=== PATIENT | female | born 1970 | race Caucasian/White ===

== ENCOUNTER 2019-03-18 22:02 | Inpatient (IN) | payer BC ==
--- NOTE | 2019-03-18 22:15 | ED ---
Psych HPI <Donald Melton - Last Filed: 03/19/19 10:30> - General Source: RN notes reviewed, old records reviewed - History of Present Illness MD Complaint: altered mental status, other (not responging by choice) -: unknown Associated Psychiatric Symptoms: none History of same: No Improves With: none Worsens With: none <Donald Phelan - Last Filed: 03/19/19 21:46> - General Stated Complaint: Mental Health Time Seen by Provider: 03/18/19 22:11 - History of Present Illness Initial Comments: This is a 48-year-old female ER for evaluation patient Edwardo for evaluation regards to unknown reason. Patient's brought in by EMS is not participating history taking. Patient was found crying in a parking lot by the ER again by PD, patient refusing again with history taking (Donald Phelan) - Related Data Home Medications Medication Instructions Recorded Confirmed No Known Home Medications 03/19/19 03/19/19 Allergies Allergy/AdvReac Type Severity Reaction Status Date / Time paliperidone [From Invega] AdvReac "MAKES HER Verified 03/19/19 11:10 GO LIBBY" Review of Systems ROS Other: All systems not noted in ROS Statement are negative. <Donald Melton - Last Filed: 03/19/19 10:30> ROS Other: All systems not noted in ROS Statement are negative. <Donald Phelan - Last Filed: 03/19/19 21:46> ROS Statement: Those systems with pertinent positive or pertinent negative responses have been documented in the HPI. General Exam General appearance: alert, in no apparent distress Head exam: Present: atraumatic, normocephalic, normal inspection Eye exam: Present: normal appearance, PERRL, EOMI. Absent: scleral icterus, conjunctival injection, periorbital swelling ENT exam: Present: normal exam, mucous membranes moist Neck exam: Present: normal inspection. Absent: tenderness, meningismus, lymphadenopathy Respiratory exam: Present: normal lung sounds bilaterally. Absent: respiratory distress, wheezes, rales, rhonchi, stridor Cardiovascular Exam: Present: regular rate, normal rhythm, normal heart sounds. Absent: systolic murmur, diastolic murmur, rubs, gallop, clicks GI/Abdominal exam: Present: soft, normal bowel sounds. Absent: distended, tenderness, guarding, rebound, rigid Extremities exam: Present: normal inspection, full ROM, normal capillary refill. Absent: tenderness, pedal edema, joint swelling, calf tenderness Back exam: Present: normal inspection Neurological exam: Present: alert, oriented X3, CN II-XII intact Psychiatric exam: Present: normal affect, normal mood Skin exam: Present: warm, dry, intact, normal color. Absent: rash <Donald Phelan - Last Filed: 03/19/19 21:46> Course <Donald Phelan - Last Filed: 03/19/19 21:46> Vital Signs 03/18/19 03/19/19 03/19/19 22:15 00:05 03:53 Temperature 98 F Pulse Rate 98 80 76 Respiratory 18 18 18 Rate Blood Pressure 133/87 133/75 148/80 O2 Sat by Pulse 98 98 98 Oximetry 03/19/19 03/19/19 06:19 08:14 Temperature 98.6 F Pulse Rate 80 90 Respiratory 18 16 Rate Blood Pressure 127/74 147/89 O2 Sat by Pulse 98 97 Oximetry - Reevaluation(s) Reevaluation #1: 03/19/19 02:34 Medical record is reviewed (Donald Phelan) Medical Decision Making - Lab Data Result diagrams: 03/19/19 00:02 03/19/19 00:02 <Donald Melton - Last Filed: 03/19/19 10:30> - Lab Data Result diagrams: 03/19/19 00:02 03/19/19 00:02 - Radiology Data Radiology results: report reviewed (CT brain is negative for acute disease), image reviewed <Donald Phelan - Last Filed: 03/19/19 21:46> - Medical Decision Making 46 female to the ER for evaluation significant psychiatry, at this point no organic cause for the patient's symptoms patient will be admitted for psychiatric evaluation and treatment (Donald Phelan) - Lab Data Lab Results 03/19/19 03/19/19 Range/Units 00:02 00:02 WBC 8.3 (3.8-10.6) k/uL RBC 4.73 (3.80-5.40) m/uL Hgb 14.7 (11.4-16.0) gm/dL Hct 43.3 (34.0-46.0) % MCV 91.4 (80.0-100.0) fL MCH 31.1 (25.0-35.0) pg MCHC 34.1 (31.0-37.0) g/dL RDW 11.9 (11.5-15.5) % Plt Count 394 (150-450) k/uL Neutrophils % 67 % Lymphocytes % 24 % Monocytes % 6 % Eosinophils % 1 % Basophils % 1 % Neutrophils # 5.6 (1.3-7.7) k/uL Lymphocytes # 2.0 (1.0-4.8) k/uL Monocytes # 0.5 (0-1.0) k/uL Eosinophils # 0.1 (0-0.7) k/uL Basophils # 0.1 (0-0.2) k/uL Sodium 141 (137-145) mmol/L Potassium 4.2 (3.5-5.1) mmol/L Chloride 108 H (98-107) mmol/L Carbon Dioxide 24 (22-30) mmol/L Anion Gap 9 mmol/L BUN 11 (7-17) mg/dL Creatinine 0.58 (0.52-1.04) mg/dL Est GFR (CKD-EPI)AfAm >90 (>60 ml/min/1.73 sqM) Est GFR (CKD-EPI)NonAf >90 (>60 ml/min/1.73 sqM) Glucose 98 (74-99) mg/dL Calcium 9.6 (8.4-10.2) mg/dL Salicylates <1.0 mg/dL Acetaminophen <10.0 ug/mL Serum Alcohol <10 mg/dL Disposition Time of Disposition: 10:30 <Donald Melton - Last Filed: 03/19/19 10:30> Is patient prescribed a controlled substance at d/c from ED?: No <Donald Phelan - Last Filed: 03/19/19 21:46> Clinical Impression: Psychosis, Acute psychosis Disposition: TRANSFER TO PSYCH HOSP/UNIT Condition: Fair
[2019-03-19 00:12] LABS: Basophils # (A) 0.1 k/uL (0-0.2); Basophils % (A) 1 %; Eosinophils # (A) 0.1 k/uL (0-0.7); Eosinophils % (A) 1 %; HCT 43.3 % (34.0-46.0); HGB 14.7 gm/dL (11.4-16.0); Lymphocytes % (A) 24 %; MCH 31.1 pg (25.0-35.0); MCHC 34.1 g/dL (31.0-37.0); MCV 91.4 fL (80.0-100.0); Mean Platelet Volume 7.4; Monocytes # (A) 0.5 k/uL (0-1.0); Monocytes % (A) 6 %; Neutrophils # (A) 5.6 k/uL (1.3-7.7); Neutrophils % (A) 67 %; Platelet Count 394 k/uL (150-450); RBC 4.73 m/uL (3.80-5.40); RDW 11.9 % (11.5-15.5); WBC 8.3 k/uL (3.8-10.6)
[2019-03-19 00:21] LABS: Acetaminophen <10.0 ug/mL; African American GFR (CKD) >90 (>60 ml/min/1.73 sqM); Alcohol <10 mg/dL; Anion Gap 9 mmol/L; Blood Urea Nitrogen 11 mg/dL (7-17); Calcium 9.6 mg/dL (8.4-10.2); Carbon Dioxide 24 mmol/L (22-30); Chloride 108 mmol/L (98-107); Glucose 98 mg/dL (74-99); Non-African American GFR(CKD) >90 (>60 ml/min/1.73 sqM); Potassium 4.2 mmol/L (3.5-5.1); Salicylate <1.0 mg/dL; Sodium 141 mmol/L (137-145)
[2019-03-19] MEDS ORDERED: SODIUM CHLORIDE 0.9% 1,000 ML IV STA (07:23)
--- NOTE | 2019-03-19 07:57 | CT ---
EXAMINATION TYPE: CT brain wo con DATE OF EXAM: 03/19/2019 COMPARISON: NONE HISTORY: Altered mental status CT DLP: 1099.4 mGycm Automated exposure control for dose reduction was used. FINDINGS: Central structures are midline. There is no evidence of hydrocephalus. No acute focal lesion, mass ef fect or midline shift is seen. I do not see evidence of intracranial blood. There are several subcuta neous scalp nodules present. These likely represent sebaceous cysts. There is a 12 mm retention cyst or polyp in the posterior aspect of the left maxillary sinus. The rem ainder the visualized sinuses and mastoids are clear. The bony calvarium is intact. IMPRESSION: 1. NO ACUTE INTRACRANIAL ABNORMALITY. 2. PROBABLE, MULTIPLE SEBACEOUS CYSTS. 3. 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
[2019-03-19] MEDS ORDERED: LORazepam 1 MG TAB PO PRN (12:04)
[2019-03-19] MEDS ORDERED: MAGNESIUM HYDROXIDE 2,400 MG/10 ML CUP PO PRN (12:04)
[2019-03-19] MEDS ORDERED: ACETAMINOPHEN TAB 325 MG TAB PO PRN (12:04)
[2019-03-19] MEDS ORDERED: ZIPRASIDONE 20 MG VIAL IM PRN (12:04)
[2019-03-19] MEDS ORDERED: MAG HYDROX/AL HYDROX/SIMETH 30 ML CUP PO PRN (12:04)
--- NOTE | 2019-03-19 19:57 | P.HP ---
Psychiatric H&P - . H&P Date: 03/19/19 History & Physical: Allergies Allergy/AdvReac Type Severity Reaction Status Date / Time paliperidone [From Invega] AdvReac "MAKES HER Verified 03/19/19 11:10 GO BESERK" Vital Signs Temp 98.6 F 03/19/19 08:14 Pulse 86 03/19/19 15:07 Resp 18 03/19/19 15:07 BP 144/68 03/19/19 15:07 Pulse Ox 97 03/19/19 08:14 Intake & Output 03/19/19 03/19/19 03/20/19 06:59 18:59 06:59 Weight 81.647 kg 111.5 kg Laboratory Last Values WBC 8.3 k/uL (3.8-10.6) 03/19/19 00:02 RBC 4.73 m/uL (3.80-5.40) 03/19/19 00:02 Hgb 14.7 gm/dL (11.4-16.0) 03/19/19 00:02 Hct 43.3 % (34.0-46.0) 03/19/19 00:02 MCV 91.4 fL (80.0-100.0) 03/19/19 00:02 MCH 31.1 pg (25.0-35.0) 03/19/19 00:02 MCHC 34.1 g/dL (31.0-37.0) 03/19/19 00:02 RDW 11.9 % (11.5-15.5) 03/19/19 00:02 Plt Count 394 k/uL (150-450) 03/19/19 00:02 Neutrophils % 67 % 03/19/19 00:02 Lymphocytes % 24 % 03/19/19 00:02 Monocytes % 6 % 03/19/19 00:02 Eosinophils % 1 % 03/19/19 00:02 Basophils % 1 % 03/19/19 00:02 Neutrophils # 5.6 k/uL (1.3-7.7) 03/19/19 00:02 Lymphocytes # 2.0 k/uL (1.0-4.8) 03/19/19 00:02 Monocytes # 0.5 k/uL (0-1.0) 03/19/19 00:02 Eosinophils # 0.1 k/uL (0-0.7) 03/19/19 00:02 Basophils # 0.1 k/uL (0-0.2) 03/19/19 00:02 Sodium 141 mmol/L (137-145) 03/19/19 00:02 Potassium 4.2 mmol/L (3.5-5.1) 03/19/19 00:02 Chloride 108 mmol/L (98-107) H 03/19/19 00:02 Carbon Dioxide 24 mmol/L (22-30) 03/19/19 00:02 Anion Gap 9 mmol/L 03/19/19 00:02 BUN 11 mg/dL (7-17) 03/19/19 00:02 Creatinine 0.58 mg/dL (0.52-1.04) 03/19/19 00:02 Est GFR (CKD-EPI)AfAm >90 (>60 ml/min/1.73 sqM) 03/19/19 00:02 Est GFR (CKD-EPI)NonAf >90 (>60 ml/min/1.73 sqM) 03/19/19 00:02 Glucose 98 mg/dL (74-99) 03/19/19 00:02 Calcium 9.6 mg/dL (8.4-10.2) 03/19/19 00:02 Salicylates <1.0 mg/dL 03/19/19 00:02 Acetaminophen <10.0 ug/mL 03/19/19 00:02 Serum Alcohol <10 mg/dL 03/19/19 00:02 03/19/19 19:46 IDENTIFYING DATA: 48-year-old single female patient HPI: Patient presents to the inpatient psychiatric unit [facility] on an involuntary basis for psychiatric admission. Petition was done by piece officers stating" subject unable to answer basic questions. Sad and [employer] parking lot for hours with blank stare. Unable to state how she got to [place] from [place]. Subject not making sense, acting delusional." Patient reports that at a spiritual encounter. She states that it's pretty personable and she doesn't want to go into detail about it. She does relate that how she ended up here her goals she says is to learn about how to cooperate with medical staff. Then she does state her goal was to come to [place]. She states later in the interview that she was on her way to [place]. She states that she does of a history of hearing God's voice, she states the voice didn't tell her to come to [place] but maybe when she was driving it said to go to [place].She reports she has not had any contact with her family but says they probably know she is in the hospital, she does really that this is happening before. When I ask her why she was brought to the hospital she relays that the police were couple with her staying in her car overnight. She says that was part of the plan to stay in her car says she was waiting for someone to come and find her.(anyone). She reports she had a similar experience a couple of days ago where she was found in [place], ended up in the emergency room but refused a psych eval. When asked about her being nonverbal for a significant amount of time in the emergency room she does state that she remembers that that she is having a hard time concentrating. When she was in [place] she says she went back to [place] and then came back to [place]. She says in [place] she had parked her car on the wrong side of the street. PAST PSYCHIATRIC HISTORY: Patient does have prior inpatient psychiatric admissions. She says they're not really psychotic breaks but she describes that as God disciplining her for her stubbornness. She doesn't a history of psychotropic medications but doesn't like the way they make her feel and she relays that they can alter the structure of her brain. She did take Abilify in the past initially says she didn't like it and she then states she had a dream that it was poison but does seem to relay she had some benefit with it. She does admit to a history of one time she was prepared to act on a thought of suicide by drinking toilet bowl stable cleaner. She has had one episode of depression in the past not treated. PMH: Denies ALLERGIES: Paliperidone MEDICATIONS: Tylenol when necessary, Maalox when necessary, Ativan when necessary, milk of magnesia when necessary, Geodon when necessary CHEMICAL DEPENDENCY HISTORY: Says occasional wine, it's never been a problem. FAMILY PSYCHIATRIC HISTORY: Relays that her mom had mental breakdowns and depression. FAMILY CHEMICAL DEPENDENCY HISTORY: None known at this time. SOCIAL HISTORY: Lives with her mom and sister in [place]. 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 She says she's been off for greater than a year. She says that God said that she needed more training. No history of being , does not have any children. MENTAL STATUS EXAM: She is alert and cooperative with the interview. She does relate that she doesn't want to go into details about her spiritual encounter. She describes her mood as "a little bit anxious." She is not present with any rapid or pressured speech. She does admit to hearing voices and describes that the voices God. She says she can hear him periodically in the last time was earlier while I was interviewing her in this office. She relays that the voice says a lot of things to her about her life and relays that the voice wants her to submit to his authority. She denies any current or recent thoughts of harm to self or others. Cognitively she appears to be grossly intact. Her insight has some limitations, judgment shows evidence of recent impairment. STRENGTHS/WEAKNESSES: Strengthsappears to have some support system; weaknessescoping skills, no active treatment INTELLECTUAL FUNCTIONING: average IMPRESSIONS: unspecified psychotic disorder PLAN: patient is admitted to the inpatient psychiatric unit [facility] on involuntary basis. She was placed on SP 15 minute precautions. She will participate in group and activity therapies. She will have baseline laboratory workup and medical consultation will be ordered. I recommended an antipsychotic medication for her which she at this time refuses. She relates during assessment that she doesn't want any psychotropic medication. She is asked to continue to consider. She does report being agreeable to one of the staff contacting her family to let them know that she is safe. We'll look into support systems. Estimated length of stay is 5-7 days. Prognosis is guarded.
--- NOTE | 2019-03-20 11:29 | P.PN ---
Progress Note - Text Progress Note Date: 03/20/19 I attempted to see this patient for medical history and physical. Patient states "I don't want to speak to anyone at this time." She is refusing history and physical exam. This was discussed with the staff at mental health unit. Please call [facility] if patient is willing to be seen at a later time.
--- NOTE | 2019-03-20 14:28 | P.PN ---
Progress Note - Text Progress Note Date: 03/20/19 Interval history: Patient is seen in cross coverage again today with female nursing staff present. Initially I called into the patient's room regarding meeting with her today and she did not response I went to get female nursing staff who accompanying me to her room. Initially the patient is nonverbal but then she does begin to speak. She relays that she just had a spiritual encounter and was hearing God's voice talking about her life. She relays that she is currently on an "christiano fast" for 3 days. Per staff she did not eat for breakfast or lunch. We discussed her needing healthy nutrition. She still chooses to not take psychotropic medication. Mental status exam: She is initially nonverbal with being alert. She does not show any agitation. Her affect is restricted. She describes her mood as "somber." She states she just had a spiritual encounter and was hearing God's voice talking about her life. She does not verbalize any thoughts of harm to self or others. She is not displaying any agitation. Plan: Patient continues today to refuse psychotropic medication. We'll continue to monitor her status, she is encouraged regarding needing healthy nutrition. She is asked to continue to consider starting medication.
[2019-03-21 11:16] LABS: Hemoglobin A1C 5.1 % (4.0-6.0)
--- NOTE | 2019-03-21 13:26 | P.PN ---
Subjective Progress Note Date: 03/21/19 Chief complaint: "I am hearing God's voice " Subjective: The patient has been seen today as follow-up, chart reviewed, case discussed with the treatment team. The patient remain paranoid and delusional. She appears very preoccupied. She remained withdrawn and isolative and refuses to talk or answer questions. The patient admitted to auditory hallucinations described as hearing "God's Bryon". The patient denies any suicidal or homicidal ideations but refused to elaborate anymore on the hallucinations. The patient has been refusing treatment and reports that she has "adventist convictions" against psychotropic medications. Objective - Vital Signs Vital signs: Vital Signs Temp 98.6 F 03/19/19 08:14 Pulse 86 03/19/19 15:07 Resp 18 03/19/19 15:07 BP 144/68 03/19/19 15:07 Pulse Ox 97 03/19/19 08:14 - Exam Objective: Vitals has been reviewed. Mental status examination; Appearance: The patient appears stated age, dressed in hospital gown and shows poor grooming and strong body odor. Gait/posture: Slow gait. Attitude and behavior: Poor eye contact and not able to engage during the session. Motor activity: Psychomotor retardation Speech: Low tone and volume and fragmented speech Mood: Anxious, depressed. Affect: Constricted Thought form: Fragmented and limited to short answers mostly mute Thought content: Paranoid and religiously preoccupied. She denies suicidal or homicidal thoughts, denies intentions or plans. Perception: Reports hearing "God's voice" Orientation: Unable to assess Insight: Absent Judgment: Poor - Labs CBC & Chem 7: 03/19/19 00:02 03/19/19 00:02 Assessment and Plan Assessment: Psychosis NOS Plan: PLAN: Continue inpatient level of care due to need for further stabilization on medications Precautions: Continue 15 minutes check for safety. Consults internal medicine team for management of medical problems. Provide the patient individual, group therapy, substance use disorder counseling to give better insight and learn coping skills. Medications: Recommend Zyprexa 5 mg by mouth twice a day. The patient is refusing any treatment. The patient is on petition and clinical certificate. A meeting the court date. Discharge patient to OUTPATIENT services upon a stabilization
[2019-03-21] MEDS: OLANZapine ODT 5 MG TAB PO SCH (22:33)
[2019-03-22] MEDS: OLANZapine ODT 5 MG TAB PO SCH ×2 (09:42→21:27)
[2019-03-22 09:51] LABS: African American GFR (CKD) >90 (>60 ml/min/1.73 sqM); Anion Gap 10 mmol/L; Blood Urea Nitrogen 10 mg/dL (7-17); Calcium 9.1 mg/dL (8.4-10.2); Carbon Dioxide 20 mmol/L (22-30); Chloride 107 mmol/L (98-107); Glucose 81 mg/dL (74-99); Non-African American GFR(CKD) >90 (>60 ml/min/1.73 sqM); Sodium 137 mmol/L (137-145)
--- NOTE | 2019-03-22 11:36 | P.PN ---
Subjective Progress Note Date: 03/22/19 Patient was seen and the chart was reviewed. The case was discussed with the staff in the team meeting. The patient remained paranoid and delusional. She remained religiously focused and appears to be responding to and following cues. The patient is not able to carry on a conversation. The patient admits to hearing God talking to her. She continues to refuse any psychotropic medications. I she appears to be very preoccupied and responding to internal cues. The patient was not able to answer any questions regarding further mental status. Objective - Vital Signs Vital signs: Vital Signs Temp 98.6 F 03/19/19 08:14 Pulse 86 03/19/19 15:07 Resp 18 03/19/19 15:07 BP 144/68 03/19/19 15:07 Pulse Ox 97 03/19/19 08:14 - Exam Objective: Vitals has been reviewed. Mental status examination; Appearance: The patient appears stated age, dressed in hospital gown and shows poor grooming and strong body odor. Gait/posture: Slow gait. Attitude and behavior: Poor eye contact and not able to engage during the session. Motor activity: Psychomotor retardation Speech: Low tone and volume and fragmented speech Mood: Anxious, depressed. Affect: Constricted Thought form: Fragmented and limited to short answers mostly mute Thought content: Paranoid and religiously preoccupied. She denies suicidal or homicidal thoughts, denies intentions or plans. Perception: Reports hearing "God's voice" Orientation: Unable to assess Insight: Absent Judgment: Poor - Labs CBC & Chem 7: 03/19/19 00:02 03/22/19 09:08 Labs: Abnormal Lab Results - Last 24 Hours (Table) 03/22/19 Range/Units 09:08 Carbon Dioxide 20 L (22-30) mmol/L Assessment and Plan Assessment: Psychosis NOS Plan: PLAN: Continue inpatient level of care due to need for further stabilization on medications Precautions: Continue 15 minutes check for safety. Consults internal medicine team for management of medical problems. Provide the patient individual, group therapy, substance use disorder counseling to give better insight and learn coping skills. Medications: Recommend Zyprexa 5 mg by mouth twice a day. The patient is refusing any treatment. The patient is on petition and clinical certificate. Awaiting the court date. Discharge patient to OUTPATIENT services upon a stabilization
[2019-03-23] MEDS: OLANZapine ODT 5 MG TAB PO SCH ×2 (09:34→21:08)
--- NOTE | 2019-03-23 14:26 | P.PN ---
Subjective Progress Note Date: 03/23/19 The patient was seen in the chart was reviewed. The patient is case was discussed with the staff during the team meeting. The patient continues to be withdrawn and isolative but has been seen pacing on the unit. The patient came to my office multiple times. The patient continues to have fragmented speech. She had her referral meeting and she decided to defer today. The patient agreed to take medication but continues to refuse psychotropic medications. The patient remained religiously preoccupied and appears to be responding to internal cues. She admitted to hearing God's voice. The patient did not answer any other questions appropriately. Objective - Vital Signs Vital signs: Vital Signs Temp 98.6 F 03/19/19 08:14 Pulse 86 03/19/19 15:07 Resp 18 03/19/19 15:07 BP 144/68 03/19/19 15:07 Pulse Ox 97 03/19/19 08:14 - Exam Objective: Vitals has been reviewed. Mental status examination; Appearance: The patient appears stated age, dressed in hospital gown and shows poor grooming and strong body odor. Gait/posture: Slow gait. Attitude and behavior: Poor eye contact and not able to engage during the session. Motor activity: Psychomotor retardation Speech: Low tone and volume and fragmented speech Mood: Anxious, depressed. Affect: Constricted Thought form: Fragmented and limited to short answers mostly mute Thought content: Paranoid and religiously preoccupied. She denies suicidal or homicidal thoughts, denies intentions or plans. Perception: Reports hearing "God's voice" Orientation: Unable to assess Insight: Absent Judgment: Poor - Labs CBC & Chem 7: 03/19/19 00:02 03/22/19 09:08 Assessment and Plan Assessment: Psychosis NOS Plan: PLAN: Continue inpatient level of care due to need for further stabilization on medications Precautions: Continue 15 minutes check for safety. Consults internal medicine team for management of medical problems. Provide the patient individual, group therapy, substance use disorder counseling to give bet ter insight and learn coping skills. Medications: Recommend Zyprexa 5 mg by mouth twice a day. The patient is refusing any treatment. The patient is on petition and clinical certificate. Awaiting the court date. Discharge patient to OUTPATIENT services upon a stabilization
[2019-03-24] MEDS: OLANZapine ODT 5 MG TAB PO SCH ×2 (09:19→21:12)
--- NOTE | 2019-03-24 13:24 | P.PN ---
Subjective Progress Note Date: 03/24/19 The patient seen and the chart was reviewed. The patient was discussed in the team meeting. The patient continues to be paranoid and delusional. She was mute during the session and did not answer any questions. The patient followed me in the hallway for some time. The patient continues to refuse medications. She was not able to carry on a conversation. Objective - Vital Signs Vital signs: Vital Signs Temp 97.6 F 03/24/19 06:26 Pulse 73 03/24/19 06:26 Resp 12 03/24/19 06:26 BP 116/60 03/24/19 06:26 Pulse Ox 97 03/19/19 08:14 - Exam Objective: Vitals has been reviewed. Mental status examination; Appearance: The patient appears stated age, dressed in hospital gown and shows poor grooming and strong body odor. Gait/posture: Slow gait. Attitude and behavior: Poor eye contact and not able to engage during the session. Motor activity: Psychomotor retardation Speech: Low tone and volume and fragmented speech Mood: Anxious, depressed. Affect: Constricted Thought form: Fragmented and limited to short answers mostly mute Thought content: Paranoid and religiously preoccupied. Perception: Appears to be responding to internal cues Orientation: Unable to assess Insight: Absent Judgment: Poor - Labs CBC & Chem 7: 03/19/19 00:02 03/22/19 09:08 Assessment and Plan Assessment: Psychosis NOS Plan: PLAN: Continue inpatient level of care due to need for further stabilization on medications Precautions: Continue 15 minutes check for safety. Consults internal medicine team for management of medical problems. Provide the patient individual, group therapy, substance use disorder counseling to give better insight and learn coping skills. Medications: Recommend Zyprexa 5 mg by mouth twice a day. The patient is refusing any treatment. The patient is on petition and clinical certificate. Awaiting the court date. Discharge patient to OUTPATIENT services upon a stabilization
[2019-03-25] MEDS: OLANZapine ODT 5 MG TAB PO SCH ×3 (09:45→22:20)
--- NOTE | 2019-03-25 13:18 | P.PN ---
Subjective Progress Note Date: 03/25/19 The patient seen and the chart was reviewed. The patient was discussed in the team meeting. The patient was seen in her room while she was laying in bed. The patient continues to be paranoid and delusional. She remained religiously preoccupied and reports hearing "God's voice". She was mute during the session mostly and did not answer many questions. The patient continues to refuse medications. She was not able to carry on a conversation. Objective - Vital Signs Vital signs: Vital Signs Temp 97.6 F 03/24/19 06:26 Pulse 73 03/24/19 06:26 Resp 15 03/25/19 06:16 BP 116/60 03/24/19 06:26 Pulse Ox 97 03/19/19 08:14 - Exam Objective: Vitals has been reviewed. Mental status examination; Appearance: The patient appears stated age, dressed in hospital gown and shows poor grooming and strong body odor. Gait/posture: Slow gait. Attitude and behavior: Poor eye contact and not able to engage during the session. Motor activity: Psychomotor retardation Speech: Low tone and volume and fragmented speech Mood: Anxious, depressed. Affect: Constricted Thought form: Fragmented and limited to short answers mostly mute Thought content: Paranoid and religiously preoccupied. Perception: Appears to be responding to internal cues Orientation: Unable to assess Insight: Absent Judgment: Poor - Labs CBC & Chem 7: 03/19/19 00:02 03/22/19 09:08 Assessment and Plan Assessment: Psychosis NOS Plan: PLAN: Continue inpatient level of care due to need for further stabilization on medications Precautions: Continue 15 minutes check for safety. Consults internal medicine team for management of medical problems. Provide the patient individual, group therapy, substance use disorder counseling to give better insight and learn coping skills. Medications: Encourage compliance Recommend Zyprexa 5 mg by mouth twice a day. The patient is refusing any treatment. The patient is on petition and clinical certificate. Awaiting the court date. Discharge patient to OUTPATIENT services upon a stabilization
[2019-03-26] MEDS: OLANZapine ODT 5 MG TAB PO SCH ×2 (08:56→21:48)
--- NOTE | 2019-03-26 09:32 | P.PN ---
Progress Note - Text Interval history: The patient is found in her room she follows me to an interview room. She was admitted for acute symptoms of psychosis. She indicates that she is hearing an evil spirit. She states that the evil spirit is telling her not to talk. In reviewing some other progress notes it appears that she is sometimes mutant sessions. We reviewed her psychotropic medication. She states that she was on Zyprexa in the past and insists that her remain at a low dose. I informed her that the medication would likely be more effective if we were able to titrate the dose. She indicates that she has a deferral conference pending. I will need to verify with staff. She states she has not yet gone through a court hearing. She states that she wants to switch doctors. She states she needs to apologize to Dr. Yeager for lying to him. She indicates she needs the teacher dancing from the homeless alf to come to the mental health unit. Mental status exam the patient is an overweight female she is dressed in her own clothing she has a disheveled appearance she demonstrates some psychomotor slowing. Eye contact is staring in nature. She endorses auditory hallucinations directing activity. She is reporting no visual hallucinations. She may have some paranoid and persecutory thoughts as well. She is guarded in responding to questions related to delusions. She demonstrates no verbal or physical aggressiveness. She does demonstrate some psychomotor slowing. She demonstrates no repetitive involuntary movements. Insight and judgment are impaired. She reports no suicidal ideation intent or plan no homicidal ideation intent or plan. Plan: The patient is currently on Zyprexa 5 mg twice daily. For her symptoms the dose would likely need to be increased. She is refusing that at this time. We will need to verify if she is in fact waiting for deferral conference. Vital signs reviewed. She is encouraged to participate in the milieu. Efforts were made to provide reality orientation. He requires continued psychiatric hospitalization due to her acute psychosis and the dysfunction that it causes.
[2019-03-27] MEDS: OLANZapine ODT 5 MG TAB PO SCH ×2 (10:50→22:01)
--- NOTE | 2019-03-27 14:01 | P.PN ---
Progress Note - Text Interval history: The patient's found in the dining room she follows me to an interview room. She states that she has trouble expressing herself. She states that she has a speech impediment and neat speech pathology. After making those few statements she then stopped talking she leaned forward in her chair and was touching the floor with her hands. She then sat up held her arms outstretched for an extended period of time. Staff was needed to help assist her out of the office. She indicated to them she was feeling dizzy and they are now checking her blood pressure. The patient refused her antipsychotic medication this morning. Mental status exam: The patient is an obese female appearing her stated age. She is dressed in her own clothing hygiene grooming appear adequate. Eye contact is poor. She demonstrated bizarre behavior as noted above. He made only a few verbal statements. She appears to be acutely psychotic still. Insight and judgment are poor. She demonstrated no verbal or physical aggressiveness. She did not appear to be any acute physical distress. Prior to our conversation she was observed to be ambulating adequately although slowly. Plan: The patient will be offered her current psychotropic medication. She does have a court hearing scheduled for the if a full hearing as needed. She requires continued psychiatric hospitalization. We will monitor her further for safety including her vital signs.
[2019-03-28] MEDS: OLANZapine ODT 5 MG TAB PO SCH ×2 (09:50→21:18)
--- NOTE | 2019-03-28 13:36 | P.PN ---
Subjective Progress Note Date: 03/28/19 Principal diagnosis: Unspecified psychotic disorder, rule out schizophrenia, rule out schizoaffective disorder I reviewed the medical record, interviewed the patient and discuss her treatment and treatment plan during team meeting. She was reluctant to get out of bed for this interview. She was very difficult interview in that she had marked poverty of speech and content of speech. She was guarded and suspicious. She denied that she has a mental illness or needs treatment for any mental illness. She stopped taking her psychotropic medication "several months ago" because God spoke to her and told she needed to stop taking the medication to clear her mind. She was religiously preoccupied. She believes that God asked her to "preach the Gospel" and "convert the homeless." She alleged that she came to [place] to live in a women's skilled nursing to "spread the word." She described hearing the voice of God, Koffi Lao and the Holy Ghost. She believes that her speech is that of the Holy Ghost. She is refusing Zyprexa 5 mg by mouth twice a day. She would not talk about her past history. Objective - Vital Signs Vital signs: Vital Signs Temp 98.4 F 03/28/19 06:39 Pulse 61 03/28/19 06:39 Resp 14 03/28/19 06:39 BP 108/58 03/28/19 06:39 Pulse Ox 96 03/27/19 06:49 Intake & Output 03/27/19 03/28/19 03/28/19 18:59 06:59 18:59 Weight 108.7 kg - Exam She presented as a moderately obese 48-year-old woman who looked her stated age. She had thick unkept hair. She was restless throughout the interview. Her speech was not spontaneous. She had long pauses before answering questions. She demonstrated poverty of speech and poverty of content She would stare for periods where she appeared to be responding to internal stimuli. Her affect was blunted and unreactive. She denied suicidal or homicidal thoughts. She expressed fixed delusional beliefs regarding God and the devil. She talked about the "devil" placing thoughts into her mind. Her thinking was not organized or coherent. She described auditory hallucinations. - Labs CBC & Chem 7: 03/19/19 00:02 03/22/19 09:08 Assessment and Plan Assessment: She is a 48-year-old woman who has a history of a psychiatric illness most likely a schizophrenia or a schizoaffective disorder. Her thinking is not organized, she expresses overvalued synagogue beliefs, ideas reference, thought insertion and auditory hallucinations. She has no insight or understanding of her mental illness or need for treatment. Because she will not consent to treatment will proceed with the plan for a probate hearing for involuntary treatment. Plan: Continue hospitalization. Probate hearing scheduled for 03/30/2019. Continue Ativan and/or Geodon when necessary for agitation or aggression.
--- NOTE | 2019-03-28 18:17 | P.MDCNMH ---
History of Present Illness H&P Date: 03/28/19 Chief Complaint: Medical evaluation 48-year-old female It's very hard to interview this patient. She seems to be suspicious and paranoid. She speaks few words at a time followed by long pauses just rocking in the chair back and forth she makes good eye contact at times but she keeps gazing without blinking. She asked me to show up in Court to say that she has no medical problems. She is concerned about her speech at the same time. Computed tomography scan in the ED was negative. When the patient does talk she talk full sentences seems to be fluent but has poverty and her content of speech. And then followed by very long pauses Review of Systems ROS unobtainable: due to mental status Past Medical History Past Medical History: No Reported History History of Any Multi-Drug Resistant Organisms: None Reported Past Surgical History: No Surgical Hx Reported Past Psychological History: Unable to Obtain Smoking Status: Unknown if ever smoked Past Alcohol Use History: Unable to Obtain Medications and Allergies Home Medications Medication Instructions Recorded Confirmed Type No Known Home Medications 03/19/19 03/19/19 History Allergies Allergy/AdvReac Type Severity Reaction Status Date / Time paliperidone [From Invega] AdvReac "MAKES HER Verified 03/19/19 11:10 GO CRISTINAERK" Physical Exam Vitals: Vital Signs Temp Pulse Resp BP 03/28/19 06:39 98.4 F 61 14 108/58 Constitutional: No acute distress, patient doesn't really cooperate with exam. Doesn't follow commands when asked to take deep breaths or move her extremities and just seems to be sitting in the chair rocking back and forth. However eventually sometimes she follows certain commands after long pause Eyes: Anicteric sclerae, moist conjunctiva, Pupils equal round reactive to light ENMT: NC/AT Oropharynx clear, no erythema, exudates Neck: Supple, FROM, no masses, or JVD No carotid bruits No thyromegaly Lungs: Clear to auscultation Clear to percussion Normal respiratory effort, no accessory muscle use Cardiovascular: Heart regular in rate and rhythm, No murmurs, gallops, or rubs No peripheral edema Abdominal: Soft Nontender, no guarding, rebound or rigidity Abdomen moving with respiration Normoactive bowel sounds Skin: Normal temperature, tone, texture, turgor No induration No subcutaneous nodules No rash, lesions No ulcers Extremities: No digital cyanosis No clubbing Pedal pulses intact and symmetrical Radial pulses intact and symmetrical No calf tenderness Psychiatric: Alert and oriented to person, place Patient seems to be suspicious and paranoid poor judgement Neuro Muscles Strength 5/5 in all 4 extremities Sensation to light touch grossly present throughout Cranial nerves II-XII grossly intact No focal sensory deficits Lymphatics: no palpable cervical or supraclavicular , or inguinal lymph nodes Cranial Nerve Examination - Cranial Nerves Cranial Nerve II- Optic: Intact Cranial Nerve III- Oculomotor: Intact Cranial Nerve IV- Trochlear: Intact Cranial Nerve V- Trigeminal: Intact Cranial Nerve - Abducens: Intact Cranial Nerve VII- Facial: Intact Cranial Nerve VIII- Auditory: Intact Cranial Nerve IX- Glossopharyngeal: Intact Cranial Nerve X- Vagus: Intact Cranial Nerve XI- Accessory: Intact Cranial Nerve XII- Hypoglossal: Intact Results CBC & Chem 7: 03/19/19 00:02 03/22/19 09:08 Assessment and Plan Plan: Abnormal behavior possible schizophrenia Management and follow-up by psychiatry Low risk for DVT patient is ambulatory Labs were reviewed overall unremarkable Thank you for allowing us to participate in the care of this patient. We will follow peripherally. Do not hesitate to contact us with questions. Someone can be reached from the [facility] hospitalist group at all hours of the day at [phone].
[2019-03-29] MEDS: OLANZapine ODT 5 MG TAB PO SCH ×2 (09:49→21:41)
--- NOTE | 2019-03-29 15:46 | P.PN ---
Subjective Progress Note Date: 03/29/19 Principal diagnosis: Unspecified psychotic disorder, rule out schizophrenia, rule out schizoaffective disorder I reviewed the medical record, interviewed the patient and discuss her treatment and treatment plan during team meeting. She complained that she is a missed of a "boo" where she is struggling against her enemies that include the differential and her "extended family." She talked about "the enemy" putting thoughts into her mind that were "disturbing" and against "God's wishes." She remains opposed to taking a psychotropic medication because God told her that s he would not be allowed to enter the Kingdom and panicky if she were to take such medications. She appeared to be responding to internal stimuli during the interview because. I made the comment that I do not believe that God would not want her to receive medical treatment. She stared blankly at the floor and began to move her mouth as though she were speaking. Objective - Vital Signs Vital signs: Vital Signs Temp 98.4 F 03/28/19 06:39 Pulse 61 03/28/19 06:39 Resp 14 03/29/19 05:57 BP 108/58 03/28/19 06:39 Pulse Ox 96 03/27/19 06:49 Intake & Output 03/28/19 03/29/19 03/29/19 18:59 06:59 18:59 Weight 108.7 kg - Exam She presented as a moderately obese 48-year-old woman who looked her stated age. She had thick unkept hair. She was restless throughout the interview. Her speech was not spontaneous. She had long pauses before answering questions. Sh shereen demonstrated poverty of speech and poverty of content She would stare for periods where she appeared to be responding to internal stimuli. Her affect was blunted and unreactive. She denied suicidal or homicidal thoughts. She expressed fixed delusional beliefs regarding God and the devil. She talked about the "devil" placing thoughts into her mind. Her thinking was not organized or coherent. She described auditory hallucinations and appeared to be responding to internal stimuli during our interview. - Labs CBC & Chem 7: 03/19/19 00:02 03/22/19 09:08 Assessment and Plan Assessment: She is severely mentally ill and minimally improve from admission. She refused to consent to antipsychotic medications. Plan: Continue hospitalization. Probate hearing scheduled for 03/30/2019. Continue Ativan and/or Geodon when necessary for agitation or aggression, encourage participation in therapeutic groups and in 2 days as tolerated, evaluate clinical status response to treatment daily basis.
[2019-03-30] MEDS: OLANZapine ODT 5 MG TAB PO SCH ×2 (09:10→20:45)
--- NOTE | 2019-03-30 15:55 | P.PN ---
Subjective Progress Note Date: 03/30/19 Principal diagnosis: Unspecified psychotic disorder, rule out schizophrenia, rule out schizoaffective disorder I reviewed the medical record, interviewed the patient and discuss her treatment and treatment plan during team meeting. Her probate hearing was deferred 2 weeks today because a job which was "unhappy" with the alternative treatment plan. The patient returned from courts with a dramatic change in her behavior. She was talkative and engaging. She talked about "something's" overcoming her and "forcing" her to leave her home and drove to [place]. The same experience resentment her from talking initially during hospitalization. She talked about her experience with past psychiatric hospitalizations including involuntary hospitalizations. She has struggled with treatment and complained about answers effects of various antipsychotic medications. For example, she gained 100 pounds when she was taking Zyprexa. She talked extensively about her efforts to control weight gain including dieting and exercising. She experience emotional "numbing" with both Abilify and Invega. She experience less numbing with a "low dose" Latuda and consented to restart it but at a "low dose." She does not believe that antipsychotic medications admitted his significant effect on her well-being because she continues to believe that she has a "spiritual problem" as opposed to a mental illness. She was more open to the idea of returning home to [place] but again refused to give permission from ED to speak with her family or her treating psychiatrist. Objective - Vital Signs Vital signs: Vital Signs Temp 98.4 F 03/30/19 06:45 Pulse 67 03/30/19 06:45 Resp 18 03/30/19 06:45 BP 119/57 03/30/19 06:45 Pulse Ox 99 03/30/19 06:45 Intake & Output 03/29/19 03/30/19 03/30/19 18:59 06:59 18:59 Weight 108.7 kg - Exam She presented as a moderately obese 48-year-old woman who looked her stated age. She had thick unkept hair. She was not restless she had during the prior encounters. Her speech was spontaneous but slow. She did not stare for long periods as she had done during prior encounters. Her affect was depressed and she cried intermittently during interview. She denied suicidal or homicidal thoughts. She did not perseverate about her beliefs about God and the devil. Her thinking was organized and coherent. She did not appear to be responding to internal stimuli. - Labs CBC & Chem 7: 03/19/19 00:02 03/22/19 09:08 Assessment and Plan Assessment: She is severely mentally ill and moderately improve from admission. She has consented to treatment with an antipsychotic. Plan: Continue hospitalization. fat pressroom worker to coordinate a deferment or a stipulation with the probate Court. Begin Latuda 20 mg at bedtime. Continue Ativan and/or Geodon when necessary for agitation or aggression, encourage pa rticipation in therapeutic groups and in 2 days as tolerated, evaluate clinical status response to treatment daily basis.
[2019-03-30] MEDS: LURASIDONE 20 MG TAB PO SCH (20:45)
[2019-03-31] MEDS: OLANZapine ODT 5 MG TAB PO SCH (09:00)
--- NOTE | 2019-03-31 14:01 | P.PN ---
Subjective Progress Note Date: 03/31/19 Principal diagnosis: Unspecified psychotic disorder, rule out schizophrenia, rule out schizoaffective disorder I reviewed the medical record, interviewed the patient and discuss her treatment and treatment plan during team meeting. She took her first dose of Latuda last night. This morning she did not get up for breakfast or lunch. She's been asleep in her room. She is difficult to arouse except with deep pressure. When aroused she sluggishly complained to "go away." She would not get out of bed or come into the office for the interview. Objective - Vital Signs Vital signs: Vital Signs Temp 98.4 F 03/31/19 06:49 Pulse 73 03/31/19 06:49 Resp 18 03/31/19 06:49 BP 130/61 03/31/19 06:49 Pulse Ox 97 03/31/19 06:49 - Exam She was laying in bed and as mentioned above difficult to arouse Lexapro deep pressure. - Labs CBC & Chem 7: 03/19/19 00:02 03/22/19 09:08 Assessment and Plan Assessment: She is severely mentally ill and moderately improve from admission. She is sedated probably from the initial dose of Latuda. Plan: Continue hospitalization. transportation maintenance worker to coordinate a deferment or a stipulation with the probate Court. Continue Latuda 20 mg at bedtime. Discontinue old order for side effects 5 mg by mouth twice a day Continue Ativan and/or Geodon when necessary for agitation or aggression, encourage participation in therapeutic groups and in 2 days as tolerated, evaluate clinical status response to treatment daily basis.
[2019-03-31] MEDS: LURASIDONE 20 MG TAB PO SCH (19:52)
--- NOTE | 2019-04-01 12:09 | P.PN ---
Subjective Progress Note Date: 04/01/19 Principal diagnosis: Unspecified psychotic disorder, rule out schizophrenia, rule out schizoaffective disorder I reviewed the medical record, interviewed the patient and discuss her treatment and treatment plan during team meeting. She remained in bed yesterday until dinner. She told me that "the enemy" prevented her from getting out of bed, moving or speaking. She initially believed that the commands were from "Koffi Shilo" but later realize they were "the enemy". She believes that the antipsychotic medication allowed "the enemy" to end her mind and control her behavior. She would not engage in discussion of discharge plans or family support. She replied to questions with the statement "I do not want to talk about that." She again requested to "disorder" her probate hearing for involuntary hospitalization. I spoke with his secretary office clerk we will arrange for the court representative government relations to discuss her request. She denied side effects to the initial dose of Latuda. Objective - Vital Signs Vital signs: Vital Signs Temp 98.8 F 04/01/19 06:14 Pulse 65 04/01/19 06:14 Resp 14 04/01/19 06:14 BP 111/63 04/01/19 06:14 Pulse Ox 97 03/31/19 06:49 - Exam She was casually groomed pleasant and cooperative. She made eye contact and appeared to attend to the interview. She had a flat facial expression. She showed psychomotor retardation but no abnormal movements. Her speech was halting. There were long pauses between her statements or answers to questions. Her affect was flat and unreactive. She did not express suicidal homicidal ideation. She expressed feelings of hopelessness regarding her control of her behavior or resistance against commands of "the enemy". She expressed paranoid ideation, paranoid delusional beliefs, thought insertion, and thought control. Her thinking was coherent and logical consistent with a chronic delusional beliefs. She described hearing the voice of "Koffi Shilo" and "others" but did not appear to be responding to internal stimuli. - Labs CBC & Chem 7: 03/19/19 00:02 03/22/19 09:08 Assessment and Plan Assessment: She is severely mentally ill and moderately improve from admission. She remains paranoid, delusional and psychotic. Plan: Continue hospitalization. Continue Latuda 20 mg at bedtime and titrated according to clinical response and tolerance. Continue Ativan and/or Geodon when necessary for agitation or aggression, encourage participation in therapeutic groups and in 2 days as tolerated, evaluate clinical status response to treatment daily basis.
[2019-04-01] MEDS: LURASIDONE 20 MG TAB PO SCH (22:06)
--- NOTE | 2019-04-02 16:45 | P.PN ---
Progress Note - Text Progress Note Date: 04/02/19 Subjective: Patient was seen today as a cross coverage for . The patient was evaluated, chart reviewed, case discussed with the treatment team. Patient presented with bizarre psychotic behavior and speech. She wasn't able to give any informative history and reports "I have word finding problems". When he was asking about sleeping, she kept answered by "I am sleeping" without giving any further history or details about her symptoms. She presents with thought bloc luis a and was very slow in her reaction and her response. At certain points during interview she responded to questions by "I couldn't answer further question". The patient appears internally preoccupied and as she responding to internal stimuli. No report of suicidal or homicidal thoughts, but she presents guarded and to certain degree paranoid. Objective: Vitals has been reviewed. Mental status examination; Appearance: The patient appears stated age, adequately groomed and dressed, no specific features. Gait/posture: Normal gait, Normal arm swinging: No abnormal movements. Attitude and behavior: Not engaged, not cooperative, poor eye contact. Motor activity: Decreased psychomotor activity Speech: Slow rate, vert low volume. Mood: "not reported" Affect: Flat Thought form: Thought blocking. Thought content: Bizarre, disorganized, no report of suicidal or homicidal thoughts, no report of intentions or plans to harm self or others. Perception: Patient was not fully cooperative, but she seems responding to internal stimuli Attention: No impairment. Orientation: Patient was not fully cooperative and didn't answer questions Insight: Patient has limited insight about her psychiatric disorder. Judgment: Patient has limited judgment about her psychiatric treatment. Assessment: Unspecified psychosis. Plan: Continue inpatient level of care due to need for further stabilization on medications Precautions: Continue 15 minutes check for safety. Consider medical consultation if any acute medical issues arise. Provide the patient individual, group therapy, substance use disorder counseling to give better insight and learn coping skills. Medications: Continue Latuda for psychotic symptoms. Continue when necessary medications. Discharge patient to OUTPATIENT services upon a stabilization
[2019-04-02] MEDS: LURASIDONE 20 MG TAB PO SCH (21:54)
--- NOTE | 2019-04-03 13:10 | P.PN ---
Progress Note - Text Progress Note Date: 04/03/19 Subjective: Patient was seen today as a cross coverage for . The patient was evaluated, chart reviewed, case discussed with the treatment team. Patient Presented the same today with bizarre behavior, not answering questions, staring, and looks internally preoccupied. Patient was not able to give any history or report about her symptoms. She was mumbling some more anxious and sometimes repeating words "my head". No report from nursing that patient had suicidal or homicidal thoughts. Objective: Vitals has been reviewed. Mental status examination; Appearance: The patient appears stated age, adequately groomed and dressed, no specific features. Gait/posture: Normal gait, Normal arm swinging: No abnormal movements. Attitude and behavior: Not engaged, not cooperative, poor eye contact. Motor activity: Decreased psychomotor activity Speech: Slow rate, vert low volume. Mood: "not reported" Affect: Flat Thought form: Thought blocking. Thought content: Bizarre, disorganized, no report of suicidal or homicidal thoughts, no report of intentions or plans to harm self or others. Perception: Patient was not fully cooperative, but she seems responding to internal stimuli Attention: No impairment. Orientation: Patient was not fully cooperative and didn't answer questions Insight: Patient has limited insight about her psychiatric disorder. Judgment: Patient has limited judgment about her psychiatric treatment. Assessment: Unspecified psychosis. Plan: Continue inpatient level of care due to need for further stabilization on medications Precautions: Continue 15 minutes check for safety. Consider medical consultation if any acute medical issues arise. Provide the patient individual, group therapy, substance use disorder counseling to give better insight and learn coping skills. Medications: Continue Latuda for psychotic symptoms. Continue when necessary medications. Discharge patient to OUTPATIENT services upon a stabilization
[2019-04-03] MEDS: LURASIDONE 20 MG TAB PO SCH (21:37)
[2019-04-04] MEDS: ARIPiprazole 5 MG TAB PO SCH (09:09)
--- NOTE | 2019-04-04 13:52 | P.PN ---
Subjective Progress Note Date: 04/04/19 Principal diagnosis: Schizoaffective disorder I reviewed the medical record, interviewed the patient and discuss her treatment and treatment plan during team meeting. She refused to take her to her on Thursday and Thursday. She complained that it "made me feel funny." We discussed options and she agreed to a trial of Abilify "but added low-dose". She had taken Abilify in the past and experienced no adverse effects. She remains religiously preoccupied. She again talked about "God", "Koffi Shilo" and "the enemy" (devil or Satan). She acknowledges that "God" speaks for her on an almost continuous basis. She views this hospitalization as a "punishment" for having mistaken "the enemy" for "Koffi Shilo". Objective - Vital Signs Vital signs: Vital Signs Temp 98.8 F 04/04/19 06:25 Pulse 85 04/04/19 06:25 Resp 16 04/04/19 06:25 BP 128/72 04/04/19 06:25 Pulse Ox 97 03/31/19 06:49 Intake & Output 04/03/19 04/04/19 04/04/19 18:59 06:59 18:59 Weight 104.9 kg - Exam She was casually groomed pleasant and cooperative. She made eye contact and appeared to attend to the interview. She had a flat facial expression. She fidgeted throughout the interview. Her speech was halting. There were long pauses between her statements or answers to questions. Her affect was flat and unreactive. She did not express suicidal homicidal ideation. She expressed paranoid ideation, paranoid delusional beliefs, thought insertion, and thought control. Her thinking was coherent and logical consistent with a chronic delusional beliefs. She described hearing the voice of "Koffi Shilo" and "others" but did not appear to be responding to internal stimuli. - Labs CBC & Chem 7: 03/19/19 00:02 03/22/19 09:08 Assessment and Plan Assessment: She is severely mentally ill and moderately improve from admission. She remains paranoid, delusional and psychotic. Plan: Continue hospitalization. She is expressing interest in stipulating to the involuntary treatment order. Discontinue Latuda 20 mg at bedtime and began Abilify 2.5 mg daily and titrated according to clinical response and tolerance. Continue Ativan and/or Geodon when necessary for agitation or aggression, encourage participation in therapeutic groups and in 2 days as tolerated, evaluate clinical status response to treatment daily basis.
[2019-04-05] MEDS: ARIPiprazole 5 MG TAB PO SCH ×3 (10:21→14:09)
--- NOTE | 2019-04-05 14:43 | P.PN ---
Subjective Progress Note Date: 04/05/19 Principal diagnosis: Schizoaffective disorder unspecified type I reviewed the medical record, interviewed the patient and discuss her treatment and treatment plan during team meeting. She initially refused to take the morning dose of Abilify. She continues to perseverate on protestant themes and described a special relationship with God where God communicates directly to her and she struggles to distinguish God's voice from that of the devil, "the enemy". She does not believe that she has a mental illness. She was unable to provide a coherent explanation as to why she has had psychiatric hospitalizations including involuntary hospitalizations, forced to take psychotropic medication, prescribed psychotropic medications and with mental health professional since psychiatrist. We are awaiting a appeals representative from probate court to meet with her regarding her request to stipulate to the involuntary treatment order. Objective - Vital Signs Vital signs: Vital Signs Temp 98.2 F 04/05/19 06:10 Pulse 65 04/05/19 06:10 Resp 18 04/05/19 06:10 BP 138/77 04/05/19 06:10 Pulse Ox 99 04/05/19 06:10 Intake & Output 04/04/19 04/05/19 04/05/19 18:59 06:59 18:59 Weight 67.585 kg - Exam She was casually groomed pleasant and cooperative. She made eye contact and appeared to attend to the interview. She had a flat facial expression. She sat motionless throughout the interview. Her speech was halting and she demonstrated thought blocking. She frequently does not finish sentences. There were long pauses between her statements or answers to questions. Her affect was flat and unreactive. She did not express suicidal homicidal ideation. She expressed paranoid ideation, paranoid delusional beliefs, thought insertion, and thought control. Her thinking was coherent and logical consistent with a chronic delusional beliefs. She described hearing the voice of "Koffi Shilo" and "others" but did not appear to be responding to internal stimuli. - Labs CBC & Chem 7: 03/19/19 00:02 03/22/19 09:08 Assessment and Plan Assessment: She is severely mentally ill and moderately improve from admission. She remains paranoid, delusional and psychotic. Plan: Continue hospitalization. She is expressing interest in stipulating to the involuntary treatment order. Continue Abilify 2.5 mg daily and titrated according to clinical response and tolerance. Transition to [facility] after we obtain the probate order for involuntary treatment. Continue Ativan and/or Geodon when necessary for agitation or aggression, encourage participation in therapeutic groups as tolerated, evaluate clinical status response to treatment daily basis.
--- NOTE | 2019-04-06 16:03 | P.PN ---
Subjective Progress Note Date: 04/06/19 Principal diagnosis: Schizoaffective disorder unspecified type I reviewed the medical record, interviewed the patient and discuss her treatment and treatment plan during team meeting. She complains that she does not feel comfortable on the unit. "I'm not like the other people here. I don't have the same interest." Were able to discuss her discharge plans and she gave me the name and telephone number of this her psychiatrist in [place]. She gave me permission to speak with him. She is concerned that her car had been impounded and she would have to pay a "hefty fee" before she can regain possession. She denied side effects initial doses of Abilify. Objective - Vital Signs Vital signs: Vital Signs Temp 98.2 F 04/05/19 06:10 Pulse 65 04/05/19 06:10 Resp 18 04/05/19 06:10 BP 138/77 04/05/19 06:10 Pulse Ox 99 04/05/19 06:10 - Exam She was casually groomed pleasant and cooperative. She made eye contact and appeared to attend to the interview. She had a blunted but bright facial expression. She showed decreased psychomotor activity was not stiffer motions motionless. Her speech was fluent and organized. She did not demonstrate poverty of speech. Her affect was blunted but expressive. She did not express suicidal or homicidal ideation. She did not expressed paranoid ideation, paranoid delusional beliefs, thought insertion, and thought control. Her thinking was coherent and organized. She described the voices as "distant" and not influencing her thinking, speech or behavior. - Labs CBC & Chem 7: 03/19/19 00:02 03/22/19 09:08 Assessment and Plan Assessment: She is severely mentally ill and moderately improve from admission. She is much less paranoid. Plan: Continue hospitalization. She is expressing interest in stipulating to the involuntary treatment order. Increase Abilify to 5 mg daily and titrated ac cording to clinical response and tolerance. Transition to Abilify [facility] after we obtain the probate order for involuntary treatment. Continue Ativan and/or Geodon when necessary for agitation or aggression, encourage participation in therapeutic groups as tolerated, evaluate clinical status res ponse to treatment daily basis.
[2019-04-07] MEDS: ARIPiprazole 5 MG TAB PO SCH (09:36)
[2019-04-08] MEDS: ARIPiprazole 5 MG TAB PO SCH (09:00)
[2019-04-08] MEDS ORDERED: ZOLPIDEM 5 MG TAB PO PRN (09:42)
--- NOTE | 2019-04-08 11:57 | P.PN ---
Subjective Progress Note Date: 04/08/19 Principal diagnosis: Schizoaffective disorder unspecified type I reviewed the medical record, interviewed the patient and discuss her treatment and treatment plan during team meeting. She complained of difficulty falling asleep yesterday. She took a 1 mg dose of lorazepam and complaint that is making her feel "confused" and "sedated". She asked if she could receive a prescription for Sonata. I reviewed formulary and the only short acting hypnotic available is Ambien. She agreed to a trial of Ambien for sleep. She talked about a "epiphany" where "Koffi Lao" spoke to her and told her that she has been "unwell". She talked about her recent treatment history. She is working with a psychiatrist in [place]. He was in the process of transition her from long-acting Invega to Abilify. She developed side effects during this medication change which prompted him and initiated trial of Latuda. She stopped treatment and her psychosis worsened resulting in her being [place] driving to [place]. Objective - Vital Signs Vital signs: Vital Signs Temp 98.7 F 04/08/19 03:51 Pulse 78 04/08/19 03:51 Resp 15 04/08/19 03:51 BP 115/68 04/08/19 03:51 Pulse Ox 99 04/07/19 06:40 - Exam She presented as a casually groomed 48-year-old female looking younger than his stated age. She made eye contact and attended to the interview. Her speech and movements were slow. She did not demonstrate poverty of speech or poverty of content of speech. She spoke in complete sentences and only occasionally had extended pauses in her answers to questions. Her affect was blunted. She denied suicidal or homicidal ideation. She is continues to bel ieve that she is in direct communication with God and struggles cans influences of the devil. She admitted to continued auditory hallucinations. She did not appear to responding to internal stimuli during our interview. - Labs CBC & Chem 7: 03/19/19 00:02 03/22/19 09:08 Assessment and Plan Assessment: She is severely mentally ill and moderately improve from admission. She is much less paranoid and her thinking is more organized. Plan: Continue hospitalization. She is expressing interest in stipulating to the involuntary treatment order. Continue Abilify to 5 mg daily and titrated according to clinical response and tolerance. Consider Abilify long-acting. Ambien 5 mg at bedtime when necessary for sleep. Continue Ativan and/or Geodon when necessary for agitation or aggression, encourage participation in therapeutic groups as tolerated, evaluate clinical status response to treatment daily basis.
[2019-04-09] MEDS: ARIPiprazole 5 MG TAB PO SCH (08:57)
--- NOTE | 2019-04-09 13:51 | P.PN ---
Subjective Progress Note Date: 04/09/19 Principal diagnosis: Schizoaffective disorder unspecified type I reviewed the medical record and interviewed the patient. She reported no adverse effects to the 5 mg dose of Abilify. She slept last night without taking Ambien. She spoke with her brother regarding discharge plans. She would like to have someone (either her brother, sister or script developer, drive to [place] immediately or after discharge and let her follow them home to [place]. She agreed to sign a release so that we may speak with her brother and sister. She described continued auditory hallucinations that fluctuates in intensity. She stated they are worse yesterday evening but have "calm down" today. Objective - Vital Signs Vital signs: Vital Signs Temp 98.1 F 04/09/19 06:01 Pulse 95 04/09/19 06:01 Resp 16 04/09/19 06:01 BP 118/68 04/09/19 06:01 Pulse Ox 96 04/09/19 04:00 - Exam She presented as a casually dressed and groomed 48-year-old female who was pleasant on approach. She made eye contact and attended to the interview. Her affect was blunted but bright. Her thinking was abstract, organized and goal directed. She did not appear to be responding to internal stimuli. She does not perseverate on rastafari themes or bring up Koffi Shilo, God or "enemy " during the interview. - Labs CBC & Chem 7: 03/19/19 00:02 03/22/19 09:08 Assessment and Plan Assessment: She is chronically and seriously mentally ill and moderately improve from admission. Plan: Continue the current dose of Abilify 5 mg at bedtime, continue Ambien 5 mg at bedtime when necessary for sleep. When she sometimes consent in the social insurance administrator may speak with her family about discharge and discharge plans.
[2019-04-09] MEDS ORDERED: MELATONIN 5 MG TABLET PO PRN (21:30)
[2019-04-10] MEDS: ARIPiprazole 5 MG TAB PO SCH (09:10)
--- NOTE | 2019-04-10 16:51 | P.PN ---
Subjective Progress Note Date: 04/10/19 Principal diagnosis: Schizoaffective disorder unspecified type I reviewed the medical record and interviewed the patient. She reported no adverse effects to the 5 mg dose of Abilify. She refused to take Ambien and nursing called me for an alternative. She was unable to fall asleep until 5 AM. She described continued auditory hallucinations that fluctuates in intensity. She stated they are worse yesterday evening but have "calm down" today. Objective - Vital Signs Vital signs: Vital Signs Temp 98.6 F 04/10/19 07:03 Pulse 66 04/10/19 07:03 Resp 16 04/10/19 07:03 BP 114/65 04/10/19 07:03 Pulse Ox 96 04/09/19 04:00 Intake & Output 04/09/19 04/10/19 04/10/19 18:59 06:59 18:59 Weight 108 kg - Exam She presented as a casually dressed and groomed 48-year-old female who was pleasant on approach. She made eye contact and attended to the interview. Her affect was blunted but bright. Her thinking was abstract, organized and goal directed. She did not appear to be responding to internal stimuli. She does not perseverate on lutheran themes or bring up Koffi Shilo, God or "enemy" during the interview. - Labs CBC & Chem 7: 03/19/19 00:02 03/22/19 09:08 Assessment and Plan Assessment: She is chronically and seriously mentally ill and moderately improve from admission. Plan: Continue the current dose of Abilify 5 mg at bedtime and titrated according to clinical response and tolerance, continue Ambien 5 mg at bedtime when necessary for sleep. When she sometimes consent in the social media coordinator may speak with her family about discharge and discharge plans.
[2019-04-11] MEDS: ARIPiprazole 5 MG TAB PO SCH (10:22)
--- NOTE | 2019-04-11 11:15 | P.PN ---
Subjective Progress Note Date: 05/06/19 (LATE ENTRY) Principal diagnosis: Schizoaffective disorder unspecified type I reviewed the medical record, interviewed the patient discussed her treatment and treatment plan during team meeting. The "voices" have reduced considerably and she talked about the presence more imminently "background". She remains religiously preoccupied. She talked about communicating with God and resisting the "attacks" of the "enemy". She is considering returning to live with her sister in [place]. Objective - Vital Signs Vital signs: Vital Signs Temp 98.6 F 04/11/19 06:43 Pulse 66 04/11/19 06:43 Resp 18 04/11/19 06:43 BP 126/59 04/11/19 06:43 Pulse Ox 96 04/11/19 06:43 Intake & Output 04/10/19 04/11/19 04/11/19 18:59 06:59 18:59 Weight 108 kg - Exam She presented as a casually groomed 48-year-old occasional female who is moderately obese. She had thick unkempt hair. She made eye contact and appeared to attend to interview. She had a blunted but bright facial expression His speech was spontaneous with decreased rate and rhythm. She spoke in complete sentences. She did not have long pauses in response to questions. Her affect was blunted but stable and appropriate. She denied suicidal ideation or homicidal ideation. Her thinking was stilted but organized and goal directed. She described auditory hallucinations but did not appear to be responding to internal stimuli. - Labs CBC & Chem 7: 03/19/19 00:02 03/22/19 09:08 Assessment and Plan Assessment: She showed moderate improvement from admission with decrease of confusion and internal preoccupation. Plan: Continue treatment and treatment plan. Continue Abilify 5 mg per day and titrated according to clinical response to treatment. Social work to assist with discharge and aftercare services.
--- NOTE | 2019-04-11 12:37 | P.PN ---
Subjective Progress Note Date: 04/11/19 Principal diagnosis: Schizoaffective disorder unspecified type I reviewed the medical record, interviewed the patient and discussed her treatment and treatment plan during team meeting. She said that God spoke to her last night and revealed that she should not live with her sister. She was unwilling to discussed the reasons for not living with her sister. Instead, she' request our assistance with linking her with services through the [facility] in [facility]. In addition to outpatient mental health services they offer supportive housing and temporary housing for mentally ill. If they're unable to provide her with temporary housing, she would like to be discharged to a "room and board" and plans to drive to [facility] in "3 or 4 days." Objective - Vital Signs Vital signs: Vital Signs Temp 98.6 F 04/11/19 06:43 Pulse 66 04/11/19 06:43 Resp 18 04/11/19 06:43 BP 126/59 04/11/19 06:43 Pulse Ox 96 04/11/19 06:43 Intake & Output 04/10/19 04/11/19 04/11/19 18:59 06:59 18:59 Weight 108 kg - Exam She was C dressed and groomed. She has worn same T-shirt throughout the hospitalization. She stated that her clothes are in her car, but she has been washing T-shirt every other day. She made eye contact and attended the interview. She had psychomotor retardation but no abnormal movements. Her speech was slow and somewhat stilted with decreased rhythm and volume. Her affect was blunted but stable and appropriate. She denied suicidal ideation or wishes. She is not homicidal ideation. She denied feeling hopeless, helpless or worthless. She remains religiously preoccupied but did not ask breast clear paranoid ideation or delusional thoughts. Her thinking was abstract and logical. She described continued auditory hallucinations but did not appear to be responding to internal stimuli. - Labs CBC & Chem 7: 03/19/19 00:02 03/22/19 09:08 Assessment and Plan Assessment: She is much to improve from admission but continues to be religiously preoccupied, guarded and experiencing auditory hallucinations. Plan: Continue current treatment. I referred to social work for assistance with her new discharge and aftercare plan.
[2019-04-12] MEDS: ARIPiprazole 5 MG TAB PO SCH (09:11)
[2019-04-12 11:03] VITALS: BMI 35.2
--- NOTE | 2019-04-12 13:29 | P.PN ---
Subjective Progress Note Date: 04/12/19 Principal diagnosis: Schizoaffective disorder unspecified type I reviewed the medical record, interviewed the patient and discussed her treatment and treatment plan during team meeting. She again change her mind about discharge and aftercare. She now wants to be discharged to a local nursing home and receive services through [facility]. When I asked about the change to her plans she talked about listing to the "true" voice of God. She expressed concerns about finances and lack of a monthly income. She does not believe that she could afford an apartment or a room and board with her current savings considering her outstanding expenses. She would like to "conse rvative" for money" until she receives Social Security disability (she was denied once for Social Security and has yet to reapply). Objective - Vital Signs Vital signs: Vital Signs Temp 98.2 F 04/12/19 07:08 Pulse 64 04/12/19 07:08 Resp 18 04/12/19 07:08 BP 108/57 04/12/19 07:08 Pulse Ox 96 04/11/19 06:43 Intake & Output 04/11/19 04/12/19 04/12/19 18:59 06:59 18:59 Weight 108 kg - Exam She presented as a casually groomed 48-year-old female who is wearing a hospital gown. She made intermittent, eye contact but appeared to attend to the interview. There were long pauses where she sat quietly and stared blankly. She showed decreasing movements but no abnormal movements. His speech was spontaneous. She again had long pauses in response to questions. Her affect was blunted but stable and appropriate. She denied suicidal ideation, wishes or homicidal ideation. She do not express clear ideas reference or paranoid ideation. Her thinking was abstract but associations were not coherent or logical. She demonstrated thought blocking but no perseveration and neologisms She admitted to having auditory hallucinations, "voices", but would not talk about the experience. She appeared to be responding to internal stimuli during our interview. - Labs CBC & Chem 7: 03/19/19 00:02 03/22/19 09:08 Assessment and Plan Assessment: She is severely persistently mentally ill remarkably improve from admission. Plan: Increase Abilify to 10 mg daily and titrated according to clinical response and tolerance. Continue discussion of discharge and aftercare plans and encourage her to return to [place] where she would have the support of her samaritan and family. Administer [place] before discharge.
[2019-04-13 06:26] VITALS: PULSE 71
[2019-04-13] MEDS: ARIPiprazole 10 MG TAB PO SCH (09:21)
[2019-04-13] MEDS ORDERED: ARIPiprazole IM 400 MG VIAL (NO COST) IM ONE (14:00)
--- NOTE | 2019-04-13 14:37 | P.PN ---
Subjective Progress Note Date: 04/13/19 Principal diagnosis: Schizoaffective disorder unspecified type I reviewed the medical record, interviewed the patient and discussed her treatment and treatment plan during team meeting. The theme of our meeting was discharge and aftercare. She complained that she was "not ready" for discharge because she did not sleep well last night and needs to have a CT scan before she leaves the hospital. I reviewed the sleep log with her which indicates she is sleeping between 5 and 7 hours per night. She argued that even though she is laying in bed with her eyes closed she is not asleep. She now believes that the difficulties she has with thought blocking and word finding are due to a brain abnormality. She is demanding a CAT scan and was upset when I told her that her symptoms are common for people with her type of mental illness. She was so insistent that I agreed to submit a consult to the horticultural specialty grower inside with the understanding of the horticultural specialty grower inside recommended a CAT scan and we will order one. I also informed her that the plan is to switch her over from oral to long-acting Abilify. She was distressed by this decision and assured me that she would comply with oral treatment. She alleged that she was fully compliant with treatment in [place] and only became unwell when her psychiatrist changed her treatment from Invega to Latuda. Objective - Vital Signs Vital signs: Vital Signs Temp 98.7 F 04/13/19 05:51 Pulse 71 04/13/19 05:51 Resp 15 04/13/19 05:51 BP 111/56 04/13/19 05:51 Pulse Ox 96 04/11/19 06:43 Intake & Output 04/12/19 04/13/19 04/13/19 18:59 06:59 18:59 Weight 108 kg - Exam She was C dressed and groomed. She made eye contact and attended the interview. She had a blunted facial expression. She showed slight psychomotor retardation but no abnormal movements. She was not restless or tremulous. Her speech was spontaneous with normal volume and amount but decreased rhythm. She had no articulation difficulties. Her affect was blunted but expressive. She denied suicidal ideation, wishes or homicidal ideation. She denied feeling hopeless, helpless or worthless. She did not perseverate on judaism themes and did not talk about communicating with God or "the enemy". She expressed over valued ideas regarding a brain disorder. Her thinking was concrete but her associations were logical coherent. She denied hallucinations and did not appear to be responding to internal stimuli. - Labs CBC & Chem 7: 03/19/19 00:02 03/22/19 09:08 Assessment and Plan Assessment: She is chronically and severely mentally ill and much improved from admission. She is less religiously preoccupied but demonstrates marked improvement in cognition and speech. Plan: Plan for discharge on 04/14/2019. Begin Abilify Maintenna on 300 mg IM and continue oral Abilify 10 mg daily for 14 days. Consult medicine for second opinion regarding the need for computed tomography scan. Social work to assist her with referral to the [facility] and or room and board as well as follow- up and aftercare through community mental [facility].
[2019-04-14 07:12] VITALS: TEMP 98.3
[2019-04-14 07:18] VITALS: BP 124/58; RESP 16
[2019-04-14] MEDS: ARIPiprazole 10 MG TAB PO SCH (09:44)
--- NOTE | 2019-04-14 14:34 | P.DS ---
Providers Date of admission: 03/19/19 11:48 Attending physician: Royal Allen MD Consults: 03/19/19 12:04 Consult Physician Routine Consulting Provider: Leidy Mac Consult Reason/Comments: H&P medical managment Do you want consulting provider notified?: Yes Primary care physician: Stated None - Discharge Diagnosis(es) (1) Schizoaffective disorder Status: Chronic Priority: High (2) Housing lack Status: Acute Priority: Low Hospital Course: She is a 48-year-old single female who has a history of a severe and persistent mental illness. She presented to the psychiatric unit involuntarily. A border police completed the petition. She is not a resident in [place] and impulsively drove from [place] to [place]. An employee at a local pharmacy called the police because she was parked in their parking lot "for several papa rs" and staring blankly. She told the admitting psychiatrist that she had a "spiritual encounter." She was minimally cooperative with interview and refused to answer questions. She talked about hearing "God's voice." She alleged that she was on her way to [place] but a voice told her to "go to [place]." She would not provide much information about her past history other than admitting she had been admitted to a psychiatric hospital before. She denies that she has a mental illness and believes that the "psychotic breaks" were punishment by God for her "stubbornness". She would not give permission to contact her treating psychiatrist in [place]. She was minimally cooperative throughout most of the hospitalization. She refuses to take psychotropic medication and refused to give consent to speak with her family. She initially complained that she could not take psychiatric medication because "God" told her that she would face eternal damnation if she were to take the medication. We submitted the necessary paperwork to the probate Court for involuntary hospitalization. She met with her heel edge inker machine and refused to deferred the probate hearing. On the have for hospital ization, before her probate hearing, she agreed to start Latuda. She talked about having been prescribed several other medications the past including Abilify, Latuda and Abilify and alleged that she had no side effects with Latuda. After 5 days she refused to continue to Latuda. She eventually stipulated to the involuntary order rather than go to the probate hearing. After she stipulated we start Abilify. We gradually titrated the Abilify to 10 mg per day. During her hospital stay she had periods of catatonia and periods of mutism. Overall mental status gradually improved where she was able to communicate and express her self. However, she continued to refuse to allow us to contact her family or her treatment team. The licensed social worker met with her on several occasions to establish a discharge and aftercare plan. Her plans changed frequently. She initially wanted to be discharged to a intermediate so she could "preach the word of God.". She later requested a room and board then a referral to the [facility] in [facility]. She then requested to go to a intermediate and finally plans to drive back to [place] temporarily then moved to [place]. She denied side effects to to the Abilify and on the day of discharge we administered 300 mg of Abilify Maintena IM as well as a 14 day supply of Abilify 10 mg daily. At time of discharge she presented as a casually groomed 48-year-old female with unkept hair. She made eye contact and appeared to attend to the interview. She had a flat facial expression. She was alert and oriented to person, place and time. She showed psychomotor retardation but no abnormal movements. Speech was spontaneous with decreased rate, rhythm and volume. She had no articulation difficulties. Her affect was blunted but stable and appropriate. She denied suicidal ideation or wishes. She denied homicidal ideation. She denied feeling hopeless, helpless or worthless. She did not express clear ideas reference, paranoid ideation or delusions. She maintains overvalued ideas of pentecostalism and spirituality. Her thinking was concrete. Associations were coherent and logical. She did not demonstrate blocking. She denied current auditory hallucinations and did not appear to responding to internal stimuli. Patient Condition at Discharge: Stable Plan - Discharge Summary New Discharge Prescriptions: New ARIPiprazole [Abilify] 10 mg PO DAILY 14 Days #14 tab ARIPiprazole [Abilify Maintena] 300 mg IM QMONTH 30 Days #1 vial Melatonin 10 mg PO HS PRN 30 Days #30 tablet PRN Reason: Insomnia Discharge Medication List ARIPiprazole [Abilify Maintena] 300 mg IM QMONTH 30 Days #1 vial 04/14/19 [Rx] ARIPiprazole [Abilify] 10 mg PO DAILY 14 Days #14 tab 04/14/19 [Rx] Melatonin 10 mg PO HS PRN 30 Days #30 tablet 04/14/19 [Rx] Follow up Appointment(s)/Referral(s): [facility] [Outside] - 04/14/19 12:00 pm (Walk In Intake 04/14/2019 @ 12:00) [facility]STAFF[facility] - 1 Week Patient Instructions/Handouts: Psychotic Disorder (DC) Activity/Diet/Wound Care/Special Instructions: Activity and diet as tolerated. Avoid the use of street drugs and alcohol. Take all medications as prescribed. When you are in need of refills on your medications please contact your medical provider and/or outpatient psychiatrist to have this done. Please go to scheduled outpatient appointment for aftercare treatment. If symptoms return or become worse, call the crisis line at and/or go to the nearest emergency room for evaluation. Discharge Disposition: HOME SELF-CARE
== END 2019-04-14 12:27 | disposition home or self-care (01) | DRG 885 ==
LOC: EC 22:02 → 3MHU 03-19 11:48
PROVIDERS: ADMIT Psychiatry & Neurology Psychiatry; ATTEND Psychiatry & Neurology Psychiatry
DX: F25.9 Schizoaffective disorder, unspecified (principal); R41.82 Altered mental status, unspecified; F32.9 Major depressive disorder, single episode, unspecified; R41.843 Psychomotor deficit; E66.9 Obesity, unspecified; L72.3 Sebaceous cyst; Z71.3 Dietary counseling and surveillance; Z68.35 Body mass index [BMI] 35.0-35.9, adult; Z59.0 Homelessness; Z53.29 Procedure and treatment not carried out because of patient's decision for other reasons; Z88.8 Allergy status to other drugs, medicaments and biological substances; Z81.8 Family history of other mental and behavioral disorders
CPT/HCPCS: 36415; 70450; 80048; 80061; 80320; 80329; 83036; 83520; 84443; 85025; 96360; 96361; 99285